=== PATIENT | female | born 1965 | race Caucasian/White ===

== ENCOUNTER 2022-04-14 13:11 | Emergency (ER) | payer MEDICAID ==
[~2022-04-14] VITALS: Ht 162.6 cm; Wt 100.0 kg
[2022-04-14 13:26] VITALS: TEMP 98.1
[2022-04-14] MEDS ORDERED: CLEOCIN HCL300 MG PO (14:35)
[2022-04-14 14:56] VITALS: BP 122/88; PULSE 86
== END 2022-04-14 14:56 | disposition home or self-care (01) ==
LOC: COL.ER 13:11
DX: T81.49XA Infection following a procedure, other surgical site, initial encounter (principal); F17.210 Nicotine dependence, cigarettes, uncomplicated; Z28.310 Unvaccinated for COVID-19

== ENCOUNTER 2023-10-26 11:43 | Emergency (ER) | payer MEDICAID ==
[~2023-10-26] VITALS: Ht 162.6 cm; Wt 109.1 kg
[~2023-10-26 11:43] MED LIST: 00186-0370-20 IH; ABILIFY 10MG TA10 MG PO; ALBUTEROL0.83 MG/ML IH; AMBIEN 10MG10 MG PO; CEPHALEXIN500 M1 PO; CLEOCIN HCL300 MG PO; DESYREL 100MG100 MG PO; FLEXERIL 1010 MG/TAB PO; LASIX 40MG TABL40 MG PO; MACROBID 1100 MG/CAP PO; NORCO 325 MG-51 TAB PO; ROBAXIN 50500 MG/TAB PO; ROXICODONE 55 MG/TAB PO; TRELEGY ELLIPT1 EAC1 IH; ZOFRAN ODT4 MG PO
[2023-10-26 11:51] VITALS: TEMP 98.7
[2023-10-26 12:35] LABS: BASO % 0.2 % (0.0-2.0); GRAN # 3.7 K/mm3 (1.4-6.5); GRAN % 75.7 % (42.2-75.2); LYMPH # 0.6 K/mm3 (1.2-3.4); LYMPH % 12.8 % (20.0-51.0); MEAN CELL VOLUME 92 fl (80.0-100.0); MEAN CORPUSCULAR HEMOGLOBIN 32 pg (27-31); MEAN CORPUSCULAR HGB CONC 35 g/dl (33.0-37.0); MEAN PLATELET VOLUME 10.5 fl (7.4-10.4); MONO # 0.5 K/mm3 (0.1-0.6); MONO % 10.9 % (1.7-9.3); PLATELET COUNT 158 K/mm3 (130-400); RED BLOOD COUNT 5.66 M/mm3 (4.10-5.30); REDCELL DISTRIBUTION WIDTH-CV 13.2 % (11.5-14.5)
[2023-10-26 12:38] LABS: HEMATOCRIT 52.1 % (37.0-47.0)
[2023-10-26 12:52] LABS: INR 1.1 (0.8-3.0); PROTHROMBIN TIME 11.4 SECONDS (9.7-12.8)
[2023-10-26 12:54] LABS: PARTIAL THROMBOPLASTIN TIME 31.5 SECONDS (26.0-37.0)
[2023-10-26 12:55] LABS: ALANINE AMINOTRANSFERASE 38 U/L (0-55); ALBUMIN 3.5 gm/dL (3.5-5.0); ALKALINE PHOSPHATASE 96 U/L (40-150); ANION GAP 11 mmol/L (7-16); AST,SGOT 32 U/L (5-34); BILIRUBIN,TOTAL 0.7 mg/dL (0.2-1.2); BLOOD UREA NITROGEN 7 mg/dL (10-20); CALCIUM 9.4 mg/dL (8.4-10.2); CARBON DIOXIDE 25 mmol/L (22-29); CHLORIDE 109 mmol/L (98-107); GLUCOSE 116 mg/dL (70-99); MAGNESIUM 1.8 mg/dL (1.6-2.6); POTASSIUM 3.7 mmol/L (3.5-4.5); SODIUM 145 mmol/L (136-145); TOTAL PROTEIN 6.6 gm/dL (6.2-8.1)
[2023-10-26 13:06] LABS: TROPONIN-I < 0.010 ng/mL (0.00-0.033)
[2023-10-26] MEDS ORDERED: ZITHROMAX Z PA250 MG PO (13:17)
[2023-10-26] MEDS ORDERED: Mag/Al Hydrox/Simeth Susp 30 ML CUP PO ONE (13:45)
[2023-10-26 13:56] VITALS: BP 185/84; PULSE 85
== END 2023-10-26 13:56 | disposition home or self-care (01) ==
LOC: COL.ER 11:43
PROVIDERS: Family Medicine
DX: J20.9 Acute bronchitis, unspecified (principal); J44.0 Chronic obstructive pulmonary disease with (acute) lower respiratory infection; D75.1 Secondary polycythemia; F17.210 Nicotine dependence, cigarettes, uncomplicated